=== PATIENT | male | born 2000 | race Caucasian/White ===

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

== ENCOUNTER → 2023-10-31 | Outpatient (CLI) | payer OTHER ==
[2023-10-31 19:46] LABS: Aspergillus fumagatus IgE <0.10 kU/L; Birch IgE 0.17 kU/L; Dog Dander IgE 0.19 kU/L; Elm IgE 0.24 kU/L; Oak IgE 1.21 kU/L; Ragweed,Common IgE 0.53 kU/L
[2023-11-01 13:20] LABS: Apple IgE Class CLASS 2; Horse Dander IgE Class CLASS 0/1; Pecan IgE Class CLASS 0/1
[2023-11-01 13:21] LABS: Bermuda Grass IgE 4.88 kU/L (<0.10); House Dust (H-S) IgE 2.28 kU/L (<0.10); House Dust (H-S) IgE Class CLASS 2; Meadow Fescue IgE 4.85 kU/L (<0.10); Meadow Fescue IgE Class CLASS 3; Meadow Grs (KY blue) IgE 5.24 kU/L (<0.10); Meadow Grs (KY blue) IgE Class CLASS 3; Penicillium notatum IgE Class CLASS 0; Timothy Grass IgE 5.65 kU/L (<0.10); Timothy Grass IgE Class CLASS 3
[2023-11-01 13:22] LABS: Beech IgE 4.67 kU/L (<0.10); Beech IgE Class CLASS 3; Clad herbarum IgE <0.10 kU/L (<0.10); Clad herbarum IgE Class CLASS 0; Cottonwood IgE 3.32 kU/L (<0.10); Lamb's Quarter IgE 3.56 kU/L (<0.10); Lamb's Quarter IgE Class CLASS 3; Sycamore(Mpl.Lf) IgE 4.37 kU/L (<0.10); Sycamore(Mpl.Lf) IgE Class CLASS 3; Willow Tree IgE 2.48 kU/L (<0.10); Willow Tree IgE Class CLASS 2
[2023-11-01 13:23] LABS: English Plantain IgE Class CLASS 2; Goldenrod IgE 2.31 kU/L (<0.10); Goldenrod IgE Class CLASS 2; Ragweed, Giant IgE 3.54 kU/L (<0.10); Ragweed, Giant IgE Class CLASS 3; Sheep Sorrel IgE Class CLASS 3
== END | disposition home or self-care (01) ==
LOC: LABWHC1 11:49
PROVIDERS: ATTEND Internal Medicine
DX: J31.0 Chronic rhinitis (principal)
CPT/HCPCS: 36415; 86003